=== PATIENT | female | born 1945 | race Caucasian/White ===

== ENCOUNTER 2025-05-12 21:06 | Emergency (ER) | payer MEDICAID ==
[~2025-05-12] VITALS: Ht 162.6 cm; Wt 73.0 kg
[2025-05-12 21:09] VITALS: TEMP 36.7; O2SAT 99
[2025-05-12 21:53] LABS: BASOPHILS % 1.2 % (0.0-2.0); EOSINOPHILS % 1.6 % (0.0-5.0); HEMATOCRIT. 40.6 % (36.0-48.0); HEMOGLOBIN. 13.2 g/dL (12.0-16.0); LYMPHOCYTES % 31.3 % (20.0-50.0); MEAN PLATELET VOLUME 10.1 fl (7.4-10.4); MONOCYTES % 12.3 % (2.0-8.0); NEUTROPHILS % 53.6 % (40.0-76.0); PLATELET 183 x1000/uL (130-400); RED BLOOD CELL COUNT 5.01 mill/uL (4.2-5.4); RED CELL DISTRIBUTION WIDTH 14.5 % (11.6-14.6)
[2025-05-12 22:00] LABS: INR 1.0
[2025-05-12 22:05] LABS: CREATININE 1.0 mg/dL (0.6-1.0); UREA NITROGEN BLOOD 20 mg/dL (9-23)
[2025-05-12 22:07] LABS: ASPARTATE AMINOTRANSFERASE 13 IU/L (<34); BILIRUBIN DIRECT 0.1 mg/dL (<=3.0); BILIRUBIN TOTAL 0.4 mg/dL (0.1-1.0)
[2025-05-12 22:08] LABS: PROTEIN TOTAL 6.2 g/dL (6.0-8.3)
[2025-05-12 22:13] LABS: TROPONIN I HIGH SENSITIVITY 81 ng/L (3.0-34)
[2025-05-12] MEDS: ASPIRIN 325MG EC TABLET PO ONE (22:26)
[2025-05-12 22:30] VITALS: BP 128/64; PULSE 87; RESP 15; O2SAT 94
== END 2025-05-12 23:24 | disposition left against medical advice (07) ==
LOC: ER 21:06
DX: R06.02 Shortness of breath (principal); R09.89 Other specified symptoms and signs involving the circulatory and respiratory systems; E11.9 Type 2 diabetes mellitus without complications; I10 Essential (primary) hypertension; F41.9 Anxiety disorder, unspecified
CPT/HCPCS: 36415; 71045; 80048; 80076; 83735; 83880; 84484; 85025; 93005; 99285